=== PATIENT | female | born 1970 | race Caucasian/White ===

== ENCOUNTER 2019-07-10 20:08 | Emergency (ER) | payer BC ==
[~2019-07-10] VITALS: Ht 177.8 cm; Wt 86.2 kg
[~2019-07-10 20:08] MED LIST: ESTRACE1 MG PO; NORCO 5-325 TA1 EACH PO; PANTOPRAZOLE SO40 MG PO; SYNTHROID112 MCG PO
[2019-07-10] MEDS ORDERED: FAMOTIDINE40 MG PO (20:21)
== END 2019-07-10 22:05 | disposition home or self-care (01) ==
LOC: ED 20:08
DX: S20.229A Contusion of unspecified back wall of thorax, initial encounter (principal); S60.032A Contusion of left middle finger without damage to nail, initial encounter; E03.9 Hypothyroidism, unspecified; Z88.0 Allergy status to penicillin; Z79.899 Other long term (current) drug therapy; W18.30XA Fall on same level, unspecified, initial encounter
CPT/HCPCS: 71046; 72070; 72100; 73140; 99284-25